=== PATIENT | male | born 1975 | race African-American/Black ===

== ENCOUNTER 2016-10-03 15:54 | Emergency (ER) | payer SELFPAY ==
[~2016-10-03] VITALS: Ht 185.4 cm; Wt 80.7 kg
[2016-10-03 15:54] VITALS: BP 130/76
[2016-10-03] MEDS ORDERED: FLUORESCEIN SODIUM OPHTH 1 EA STRIP ONE (16:40)
[2016-10-03] MEDS ORDERED: TETRACAINE HCL/PF 0.5% UD 2 ML BOTTLE ONE (16:40)
[2016-10-03] MEDS ORDERED: FLUORESCEIN SODIUM OPHTH 1 EA STRIP OP ONE (17:00)
[2016-10-03] MEDS ORDERED: TETRACAINE HCL/PF 0.5% UD 2 ML BOTTLE RIGHTEYE ONE (17:00)
== END 2016-10-03 17:10 | disposition home or self-care (01) ==
LOC: ER 16:00
DX: H00.012 Hordeolum externum right lower eyelid (principal)
CPT/HCPCS: A4606; Z7610